=== PATIENT | male | born 1945 | race Caucasian/White ===

== ENCOUNTER 2018-04-17 19:03 | Emergency (ER) | payer MEDICARE ==
[~2018-04-17] VITALS: Ht 180.3 cm; Wt 99.8 kg
[~2018-04-17 19:03] MED LIST: ADULT TUSS100 MG/5 M PO; ANDROGEL1% T; ASPIRIN81 M1 PO; ASPIRIN81 M2 PO; ATENOLOL; ATENOLOL25 MG PO; BASAGLAR K100 UNIT/1 SQ; BASLE1 CRE TP; BENZONATATE100 M1 PO; CITALOPRAM20 MG PO; CODEINE30 MG PO; COREG3.125 MG PO; COUMADIN1 M1 PO; COUMADIN2.5 M1 PO; COUMADIN5 M2 PO; CRESTOR40 M1 PO; CRESTOR40 MG PO; Coumadin5 MG PO; DIABETA5 MG PO; DIGITEK0.125 MG PO; DOCUSATE NA250 MG PO; DOCUSATE SODIU100 M2 PO; ENTRESTO 24 MG1 EACH PO; FINASTERIDE5 M1 PO; FLOMAX0.4 MG PO; FLUOXETINE40 MG PO; GLIPIZIDE5 MG PO; GLUCOSE4 G1 PO; LANTUS100 U/ML SC; LISINOPRIL5 MG PO; MACROBID100 M1 PO; METOPROLOL TART50 M1 PO; METOPROLOL TART75 MG PO; NITROGLYCERIN0.4 MG SL; NOVOLOG FLEX100 U/ML SC; OMEPRAZOLE20 MG PO; OXYCODONE W/APA1 TAB PO; PANTOPRAZOLE SO20 MG PO; POTASSIUM20 MEQ PO; SEPTRA DS 800 M1 TAB PO; TOPROL XL50 MG PO; TRAZODONE150 MG PO; TRAZODONE50 MG PO; TRIDERM0.1% T; TYLENOL WITH CO1 TA1 PO; VENLAFAXINE HCL75 M1 PO; VITAMIN D2000 IU PO; WARFARIN SOD5 MG PO; ZITHROMAX Z PA250 MG PO; [UNRECOGNIZED DRUG - CODE] PO
[2018-04-17 19:04] VITALS: BP 127/71
[2018-04-17] MEDS ORDERED: VALIUM5 MG PO (20:00)
[2018-04-17] MEDS ORDERED: NAPROSYN500 MG PO (20:00)
== END 2018-04-17 20:11 | disposition home or self-care (01) ==
LOC: ED 19:03
DX: M54.5 Low back pain (principal); E11.9 Type 2 diabetes mellitus without complications; K21.9 Gastro-esophageal reflux disease without esophagitis; I11.0 Hypertensive heart disease with heart failure; I50.22 Chronic systolic (congestive) heart failure; F17.200 Nicotine dependence, unspecified, uncomplicated; Z79.899 Other long term (current) drug therapy; Z79.02 Long term (current) use of antithrombotics/antiplatelets

== ENCOUNTER 2020-10-13 18:09 | Inpatient (IN) | payer MEDICARE ==
[~2020-10-13] VITALS: Ht 180.3 cm; Wt 95.3 kg
[~2020-10-13 18:09] MED LIST changes: +NAPROSYN500 MG PO; +VALIUM5 MG PO
[2020-10-13 18:16] VITALS: BP 134/66
[2020-10-13 19:11] LABS: BASO % 0.1 % (0.0-1.0); EOS % 0.4 % (1.0-4.0); HEMATOCRIT 36.7 % (42.0-52.0); LYMPH # 1.3 10*3/uL (1.3-4.4); LYMPH % 17.9 % (27.0-41.0); MEAN CELL VOLUME 90.8 fl (80.0-94.0); MEAN CORPUSCULAR HGB 28.2 pg (27.0-31.0); MEAN CORPUSCULAR HGB CONC 31.1 g/dl (33.0-37.0); MEAN PLATELET VOLUME 10.7 fl (9.6-12.3); MONO # 0.7 10*3/uL (0.1-1.0); NEUT % 70.9 % (47.0-73.0); PLATELET COUNT AUTOMATED 207 10*3/uL (130-400); RED BLOOD COUNT 4.04 10*6/uL (4.50-5.90); RED CELL DISTRI WIDTH 15.9 % (0-14.5)
[2020-10-13 19:28] LABS: ALBUMIN 3.3 gm/dl (3.1-4.5); CREATININE 1.54 mg/dL (0.70-1.30); POTASSIUM 4.1 mmol/L (3.5-5.1); TOTAL PROTEIN 7.3 gm/dL (6.4-8.2)
[2020-10-13 19:44] LABS: ACT PARTIAL THROMBO TIME 28.5 SECONDS (20.0-32.1)
[2020-10-13 19:45] LABS: TROPONIN I 0.118 ng/ml (<0.045)
--- NOTE | 2020-10-13 22:14 | NUR ---
PATIENT PLACED ON 4L O2 TO MAINTAIN O2 GREATER THAN 98% PER DR. BROOKS.
[2020-10-13 22:34] VITALS: BP 142/68
--- NOTE | 2020-10-13 22:59 | NUR ---
PATIENT STATES THAT HE DOES NOT KNOW HIS MEDICATIONS AND [facility] STATES TO CALL THEM IN THE MORNING AND VERIFY. DR. VALERIO NOTIFIED THAT STAFF WILL CALL [facility] IN THE MORNING TO GET MEDICATION LIST.
--- NOTE | 2020-10-13 23:06 | NUR ---
REPORT FROM DIONTE SHELL AT THIS TIME
[2020-10-13 23:10] VITALS: BP 149/77
--- NOTE | 2020-10-14 00:10 | NUR ---
VARYING RHYTHMS ON CM. RESIDENT UNABLE TO BE REACHED BY PHONE. EKG ORDERED PER NURSING MEASURE. UPON ENTRY TO ROOM, PATIENT IS ASLEEP. HE IS DIAPHORETIC AND CLAMMY WHEN EKG IS BEING PERFORMED. HE HAS NO COMPLAINTS. DR VALERIO ON UNIT AND IS AWARE.
[2020-10-14 00:40] VITALS: BP 128/74
[2020-10-14 02:10] VITALS: BP 134/80
[2020-10-14 05:37] LABS: ALBUMIN 3.4 gm/dl (3.1-4.5); ALKALINE PHOSPHATASE 114 U/L (45-117); BUN 31 mg/dl (7-24); CHLORIDE 107 mmol/L (98-107); CPK 77 U/L (39-308); CREATININE 1.28 mg/dL (0.70-1.30); LDH 356 U/L (87-241); POTASSIUM 4.3 mmol/L (3.5-5.1); SGOT/AST 32 IU/L (3-35); SGPT/ALT 33 U/L (12-78); SODIUM 134 mmol/L (136-145); TOTAL PROTEIN 7.8 gm/dL (6.4-8.2)
[2020-10-14 06:00] VITALS: BP 145/76
[2020-10-14 06:13] LABS: BASO % 0.2 % (0.0-1.0); LYMPH % 16.1 % (27.0-41.0); MEAN CELL VOLUME 92.4 fl (80.0-94.0); MEAN CORPUSCULAR HGB 28.2 pg (27.0-31.0); MEAN CORPUSCULAR HGB CONC 30.5 g/dl (33.0-37.0); MEAN PLATELET VOLUME 10.7 fl (9.6-12.3); MONO # 0.4 10*3/uL (0.1-1.0); MONO % 5.7 % (3.0-9.0); NEUT % 76.9 % (47.0-73.0); PLATELET COUNT AUTOMATED 208 10*3/uL (130-400); RED BLOOD COUNT 4.33 10*6/uL (4.50-5.90); RED CELL DISTRI WIDTH 15.7 % (0-14.5); WHITE BLOOD COUNT 6.5 10*3/uL (4.8-10.8)
[2020-10-14 07:29] LABS: FERRITIN 166.5 ng/mL (22.0-322.0); VITAMIN D, 25-HYDROXY 42.5 ng/mL (30-100)
--- NOTE | 2020-10-14 07:40 | NUR ---
PT RESTING WITH EYES CLOSED. NO DISTRESS NOTED. SEE VITALS FOR MORE DETAILS. NO DISTRESS NOTED. CALL LIGHT IN REASCH, BREAKFAST TRAY TO BE ORDERED.
[2020-10-14 07:42] VITALS: BP 154/72
--- NOTE | 2020-10-14 07:43 | NUR ---
PT RESTING IN NO ACUTE DISTRESS, POX 99% RA, RESPIRATIONS 14.
--- NOTE | 2020-10-14 08:29 | NUR ---
RESPIRATORY IN ROOM, PT REMOVED FROM BI-PAP. FRESH WATER, LINES, URNIAL, TOOTHBRUS, TOOTH PASTE, MOUTH WASH, BASH WASH ALL PROVIED.
[2020-10-14] MEDS ORDERED: DECADRON6 M1 PO (11:58)
[2020-10-14] MEDS ORDERED: DOXYCYCLINE100 M3 PO (11:58)
[2020-10-14 12:00] VITALS: BP 148/74
--- NOTE | 2020-10-14 13:30 | NUR ---
PT RESTING IN BED NO SIGN OF DISTRESS RESP EASY NO COMPAINTS OR REQUESTS
--- NOTE | 2020-10-14 13:32 | NUR ---
REPORT RECIEVED FROM CLOTILDE ARROYO
== END 2020-10-14 16:49 | disposition home or self-care (01) | DRG 177 ==
LOC: ED 18:09 → EDHOLD 20:39
PROVIDERS: Family Medicine; Internal Medicine; ADMIT Internal Medicine; ATTEND Internal Medicine
DX: U07.1 COVID-19 (principal); N17.0 Acute kidney failure with tubular necrosis; I26.99 Other pulmonary embolism without acute cor pulmonale; I50.22 Chronic systolic (congestive) heart failure; E87.1 Hypo-osmolality and hyponatremia; D64.9 Anemia, unspecified; N40.0 Benign prostatic hyperplasia without lower urinary tract symptoms; F32.9 Major depressive disorder, single episode, unspecified; E11.65 Type 2 diabetes mellitus with hyperglycemia; E78.5 Hyperlipidemia, unspecified; G47.00 Insomnia, unspecified; I11.0 Hypertensive heart disease with heart failure; K21.9 Gastro-esophageal reflux disease without esophagitis; M94.0 Chondrocostal junction syndrome [Tietze]; Z95.2 Presence of prosthetic heart valve; Z95.0 Presence of cardiac pacemaker; Z82.49 Family history of ischemic heart disease and other diseases of the circulatory system; Z79.4 Long term (current) use of insulin; Z79.899 Other long term (current) drug therapy

== ENCOUNTER 2024-01-09 00:27 | Emergency (ER) | payer OTHER ==
[~2024-01-09 00:27] MED LIST changes: +DECADRON6 M1 PO; +DOXYCYCLINE100 M3 PO
[2024-01-09 00:44] VITALS: BP 166/84
[2024-01-09 00:51] LABS: BASO # 0.1 10*3/uL (0.0-0.1); BASO % 0.3 % (0.0-1.0); EOS # 0.7 10*3/uL (0.0-0.4); EOS % 4.4 % (1.0-4.0); HEMATOCRIT 36.8 % (42.0-52.0); LYMPH # 3.4 10*3/uL (1.3-4.4); LYMPH % 21.7 % (27.0-41.0); MEAN CELL VOLUME 89.3 fl (80.0-94.0); MEAN CORPUSCULAR HGB 26.5 pg (27.0-31.0); MEAN CORPUSCULAR HGB CONC 29.6 g/dl (33.0-37.0); MEAN PLATELET VOLUME 9.5 fl (9.6-12.3); MONO # 1.5 10*3/uL (0.1-1.0); MONO % 9.6 % (3.0-9.0); NEUT # 9.9 10*3/uL (2.3-7.9); NEUT % 63.2 % (47.0-73.0); PLATELET COUNT AUTOMATED 338 10*3/uL (130-400); RED BLOOD COUNT 4.12 10*6/uL (4.50-5.90); RED CELL DISTRI WIDTH 18.6 % (0-14.5); WHITE BLOOD COUNT 15.6 10*3/uL (4.8-10.8)
== END 2024-01-09 02:43 | disposition home or self-care (01) ==
LOC: ED 00:27
PROVIDERS: Internal Medicine
DX: K06.8 Other specified disorders of gingiva and edentulous alveolar ridge (principal); I10 Essential (primary) hypertension; I25.10 Atherosclerotic heart disease of native coronary artery without angina pectoris; E11.9 Type 2 diabetes mellitus without complications; K21.9 Gastro-esophageal reflux disease without esophagitis; E78.00 Pure hypercholesterolemia, unspecified; Z95.5 Presence of coronary angioplasty implant and graft; Z98.890 Other specified postprocedural states

== ENCOUNTER 2024-01-16 14:54 | Emergency (ER) | payer MEDICARE ==
[~2024-01-16] VITALS: Wt 93.4 kg
[2024-01-16 15:01] VITALS: BP 110/69
[2024-01-16] MEDS ORDERED: Tdap Vaccine 0.5 ML SYR (Adult Vaccine) IM ONE (15:40)
[2024-01-16] MEDS ORDERED: CEPHALEXIN500 M1 PO (15:45)
== END 2024-01-16 16:20 | disposition home or self-care (01) ==
LOC: ED 14:54
DX: S61.411A Laceration without foreign body of right hand, initial encounter (principal); Y92.89 Other specified places as the place of occurrence of the external cause; Y99.8 Other external cause status; Z79.899 Other long term (current) drug therapy; Z79.2 Long term (current) use of antibiotics; Z79.4 Long term (current) use of insulin; Z79.01 Long term (current) use of anticoagulants; Z95.0 Presence of cardiac pacemaker; Z98.890 Other specified postprocedural states; W26.8XXA Contact with other sharp object(s), not elsewhere classified, initial encounter; Y93.89 Activity, other specified

== ENCOUNTER 2025-07-06 21:50 | Emergency (ER) | payer OTHER ==
[~2025-07-06] VITALS: Ht 180.3 cm; Wt 88.5 kg
[~2025-07-06 21:50] MED LIST changes: +CEPHALEXIN500 M1 PO
[2025-07-06 22:09] VITALS: BP 122/68
[2025-07-06] MEDS ORDERED: Tdap Vaccine 0.5 ML SYR (Adult Vaccine) IM ONE (23:00)
[2025-07-06] MEDS ORDERED: Bacitracin Zinc 14 GM TUBE T ONE (23:05)
== END 2025-07-07 02:18 | disposition home or self-care (01) ==
LOC: ED 21:50
DX: S61.411A Laceration without foreign body of right hand, initial encounter (principal); S40.021A Contusion of right upper arm, initial encounter; S00.93XA Contusion of unspecified part of head, initial encounter; I25.10 Atherosclerotic heart disease of native coronary artery without angina pectoris; I10 Essential (primary) hypertension; E11.9 Type 2 diabetes mellitus without complications; K21.9 Gastro-esophageal reflux disease without esophagitis; E78.00 Pure hypercholesterolemia, unspecified; F17.210 Nicotine dependence, cigarettes, uncomplicated; Z98.890 Other specified postprocedural states; W19.XXXA Unspecified fall, initial encounter; Y93.89 Activity, other specified; Y92.89 Other specified places as the place of occurrence of the external cause; Y99.8 Other external cause status